=== PATIENT | male | born 1960 | race Caucasian/White ===

== ENCOUNTER → 2023-02-22 08:55 | Outpatient (CLI) | payer MEDICARE, SELFPAY ==
[2023-02-24 19:37] LABS: Fecal Immunochemical Test Positive (Negative)
== END ==
PROVIDERS: PCP Family Medicine; Visit Provider Physician Assistant
DX: Z12.11 Encounter for screening for malignant neoplasm of colon (principal)
CPT/HCPCS: 82274

== ENCOUNTER → 2023-03-10 10:51 | Outpatient (CLI) | payer MEDICARE, SELFPAY ==
[2023-03-10 19:46] LABS: Alanine Aminotransferase 48 IU/L (<50); Albumin 4.1 g/dL (3.5-5.0); Albumin Globulin Ratio 1.3 (1.0-2.8); Alkaline Phosphatase 62 U/L (38-126); Aspartate Aminotransferase 43 IU/L (17-59); BUN Creatinine Ratio 12.8 (6-22); Bilirubin Total 0.5 mg/dL (0.2-1.3); Blood Urea Nitrogen 11 mg/dL (9-20); Calcium 8.9 mg/dL (8.4-10.2); Carbon Dioxide 27 mmol/L (22-32); Chloride 102 mmol/L (98-107); Cholesterol 190 mg/dL (140-199); Estimated Glomerular Filt Rate > 60 mL/min (>60); Globulin 3.1 g/dL (1.7-4.1); Glucose 105 mg/dL (80-110); HDL Cholesterol 55 mg/dL (40-60); HEMOLYSIS 22 (0-50); LDL Cholesterol Calculated 114 mg/dL (<100); Potassium 4.5 mmol/L (3.4-5.1); Sodium 135 mmol/L (137-145); Total Protein 7.2 g/dL (6.3-8.2); Triglycerides 105 mg/dL (35-150)
[2023-03-10 19:50] LABS: Hemoglobin A1C% w Est Avg Glu 5.4 % (4.0-6.0)
[2023-03-10 19:57] LABS: Add Manual Diff / Slide Review NO; Basophils Absolute Auto 0 /uL (0-100); Basophils Percent Auto 0.6 % (0-2); Eosinophils Absolute Auto 200 /uL (0-450); Eosinophils Percent Auto 1.9 % (2-4); Hematocrit 41.9 % (41-53); Hemoglobin 14.4 g/dL (13.5-17.5); Lymphocytes Absolute Auto 1200 /uL (1100-4500); Lymphocytes Percent Auto 14.2 % (25-40); Mean Corpuscular HGB Conc 34.4 % (30-36); Mean Corpuscular Hemoglobin 33.3 PG (26-34); Mean Corpuscular Volume 96.8 fL (80-100); Monocytes Absolute Auto 600 /uL (0-900); Monocytes Percent Auto 7.4 % (3-14); Neutrophils Absolute Auto 6500 /uL (1500-7000); Neutrophils Percent Auto 75.9 % (50-75); Platelet Count 296 X10^3/uL (150-400); Red Blood Cell Count 4.33 X10^6/uL (4.5-5.9); Red Cell Distribution Width 13.3 % (11.6-14.8); White Blood Cell Count 8.6 X10^3/uL (4.5-11.0)
[2023-03-10 20:16] LABS: Prostate Specific Antigen Scrn 0.342 ng/mL (0.1-4.0)
[2023-03-10 20:18] LABS: TSH w/ Reflex to FT4 3.88 uIU/mL (0.47-4.68)
[2023-03-11 18:30] LABS: Hep C Virus Ab w/Reflex Quant REACTIVE s/c (NEGATIVE)
[2023-03-15 18:06] LABS: HCV Genotype 1a (.); HCV LOG 10 5.989 (.)
== END ==
PROVIDERS: PCP Family Medicine; Visit Provider Physician Assistant
DX: Z12.5 Encounter for screening for malignant neoplasm of prostate (principal); F32.A Depression, unspecified; Z13.6 Encounter for screening for cardiovascular disorders; Z79.899 Other long term (current) drug therapy; Z13.1 Encounter for screening for diabetes mellitus; Z11.59 Encounter for screening for other viral diseases
CPT/HCPCS: 80053; 80061; 83036; 84443; 85025; 86803; 87522; G0103

== ENCOUNTER → 2023-03-17 10:52 | Outpatient (CLI) | payer MEDICARE, SELFPAY ==
--- NOTE | 2023-03-17 10:53 | DI.CT.S_ITS ---
PROCEDURE: CT LUNG LOW DOSE SCREENING INDICATIONS: Smoker Screening for lung cancer TECHNIQUE: Noncontrast 2.0-2.5 mm thick sections acquired from the pulmonary apices to the posterior costophrenic angles. 7 mm thick axial MIP, and 5 mm coronal and sagittal reformats were then acquired. A low radiation dose technique was utilized. COMPARISON: None. FINDINGS: Image quality: Diagnostic, given the low radiation dose technique. Lungs and pleura: There is mild centrilobular emphysema with an apical predominance. Fibrotic changes are noted within the anterior aspect of the bilateral upper lungs. Mediastinum: Heart size is normal. No pericardial effusion. No mediastinal adenopathy by size criteria. Thoracic aorta and central pulmonary arteries are normal in size. Esophagus is normal in caliber. No hiatal hernia. Bones and chest wall: No suspicious bony lesions. There is a moderate T8 superior endplate compression deformity. Flowing syndesmophytes are present throughout the thoracic spine. No axillary or supraclavicular adenopathy by size criteria. Thyroid gland is unremarkable. Abdomen: Visualized upper abdomen solid organs and bowel loops appear normal in the absence of contrast. IMPRESSION: 1. No acute pulmonary radiopacities, nodules, or suspicious mass lesions. 2. Emphysema and fibrotic change. LUNG-RADS 1; annual CT surveillance recommended for high-risk patients. Dictated by: Maris Levy M.D. on 03/18/2023 at 9:17 Approved by: Maris Levy M.D. on 03/18/2023 at 9:22
== END ==
PROVIDERS: PCP Physician Assistant; Referring Provider Physician Assistant; Visit Provider Physician Assistant
DX: J43.2 Centrilobular emphysema (principal); Z12.2 Encounter for screening for malignant neoplasm of respiratory organs; F17.200 Nicotine dependence, unspecified, uncomplicated
CPT/HCPCS: 71250

== ENCOUNTER 2023-04-01 10:31 | Day surgery (SDC) | payer MEDICARE, OTHER, SELFPAY ==
--- NOTE | 2023-04-01 | PATH_ITS ---
[facility] Accession Number: [id number] No. of containers..03 Tissue . 01 Material submitted: . PART A: colon - ASCENDING POLYPS PART B: colon - TRANSVERSE POLYPS PART C: rectum - RECTAL POLYP . 01 Diagnosis: A. Ascending Colon, Polyps: Tubular adenomas. . B. Transverse Colon, Polyps: Tubular adenomas. . C. Rectum, Polyp: Tubular adenoma. [facility] 04/06/2023 1143 Local . 01 Electronically signed: . Kay Vanegas MD, Pathologist NPI- [id number] . 01 Gross description: . Part A: ASCENDING POLYPS: Received in formalin is multiple fragment(s) of booth, soft tissue measuring 1.5 x 0.5 x 0.2 cm in aggregate submitted entirely in 1 cassette(s) Part B: TRANSVERSE POLYPS: Received in formalin is multiple fragment(s) of booth, soft tissue measuring 1.2 x 0.5 x 0.2 cm in aggregate submitted entirely in 1 cassette(s) Part C: RECTAL POLYP: Received in formalin is 1 fragment(s) of booth, soft tissue measuring 1.4 x 0.8 x 0.6 cm which is bisected and submitted entirely in 1 cassette(s) /AAY 04/03/2023 2227 Local . 01 Pathologist provided ICD-10: D12.2, D12.3, D12.8 . 01 CPT . 315115, 152949, 954093 Specimen Comment: A courtesy copy of this report has been sent to [phone] Performed at: 01 [facility] [address] [place] [address] [address] [facility], [place], [place] [id number] MD Marco Biggs MD Phone: [phone]
[2023-04-01 12:03] VITALS: BMI 34.9
[2023-04-01 12:15] VITALS: BP 153/86; PULSE 87; RESP 18; TEMP 35.9; O2SAT 96
[2023-04-01] MEDS: LACTATED RINGERS 1,000 ML 42 ML IV (12:22)
--- NOTE | 2023-04-01 12:50 | PM.HP.1 ---
History of Present Illness History of Present Illness Date Patient Seen: 04/01/23 Time Patient Seen: 12:50 Chief complaint: SDC Narrative: Amado is a 63 year old man in for his first screening colonoscopy. He has no family history of colon cancer. He does smoke, mostly on weekends and was recently diagnosed with emphysema after a CT chest. He has occasional blood on toilet paper when he wipes. PFS Social History household members: none Smoking Status: Current some day smoker alcohol intake: current Meds Home Medications and Allergies Allergies Allergy/AdvReac Type Severity Reaction Status Date / Time No Known Drug Allergies Allergy Verified 03/31/23 07:54 Exam Vital Signs (past 8 hours): - 04/01/23 12:15 Temperature 96.7 F L Pulse Rate 87 Respiratory Rate 18 Blood Pressure 153/86 H Pulse Oximetry 96 Oxygen Delivery Method Room Air Oxygen Delivery Method Room Air Const General: No acute distress Assessment & Plan Assessment and plan (1) Colon cancer screening: Status: Acute Plan We reviewed the risks and benefits of colonoscopy for colon cancer screening and he would like to proceed.
--- NOTE | 2023-04-01 14:04 | PM.OP.COLON ---
Operative Date/Time/Diagnoses Date of procedure: 04/01/23 Time of procedure: 14:04 Pre-op diagnosis: Positive fit test Post-op diagnosis: same Procedure & Clinicians Study performed: Colonoscopy Same procedure as scheduled: Yes Surgeon: Weston Matute Procedure Notes Procedure in detail: Surgeon: Weston Matute MD Anesthesia: Saba Saavedra CRNA Procedure: The patient was brought to the endoscopy suite, placed in left lateral decubitus position. The patient was connected to monitoring devices. A time-out was performed. Sedation was administered. Once the patient was adequately sedated, a digital rectal exam was performed and was normal. The scope was then inserted and advanced to the cecum where the appendiceal orifice was identified and photographed. The scope was then slowly withdrawn over greater than 6 minutes. The mucosa was thoroughly inspected. There were 3 polyps in the ascending colon, each about 6 mm, each removed with a cold snare and sent together. There were 2 polyps in the transverse colon, each about 5 mm, each removed with cold snare and sent together. There was a rather large polyp on a stalk in the proximal rectum near the rectosigmoid junction. It was just over 1 cm and was resected with a cold snare. There was good hemostasis. The scope was retroflexed in the rectum. No other abnormalities were seen. The scope was straightened and removed. The patient was awakened and brought to recovery. Scope withdrawal time: 22 minutes Sedation time: 29 minutes EBL: 5 mL Findings: A 1.2 cm polyp in the upper rectum and 5 smaller polyps between the ascending and transverse colons Post-procedure Disposition: PACU
[2023-04-01 14:10] VITALS: BP 168/91; PULSE 85; RESP 16; TEMP 36.7; O2SAT 97
[2023-04-01 14:15] VITALS: BP 144/100; PULSE 74; RESP 15; O2SAT 97
[2023-04-01 14:20] VITALS: BP 159/81; PULSE 74; RESP 13; O2SAT 98
[2023-04-01 14:30] VITALS: BP 146/91; PULSE 63; RESP 12; O2SAT 98
[2023-04-01 14:45] VITALS: BP 150/87; PULSE 75; RESP 19; TEMP 36.6; O2SAT 97
== END 2023-04-01 15:00 | disposition home or self-care (01) ==
PROVIDERS: PCP Physician Assistant; Referring Provider Surgery; Visit Provider Surgery
PROC: 0DJD8ZZ Inspection of Lower Intestinal Tract, Via Natural or Artificial Opening Endoscopic (ICD-10-PCS; CPT 45378; principal; 2023-04-01 12:45)
DX: Z12.11 Encounter for screening for malignant neoplasm of colon (principal); R19.5 Other fecal abnormalities; D12.2 Benign neoplasm of ascending colon; D12.3 Benign neoplasm of transverse colon; D12.8 Benign neoplasm of rectum
CPT/HCPCS: 45385

== ENCOUNTER → 2023-07-27 13:54 | Outpatient (CLI) | payer MEDICARE, SELFPAY ==
[2023-07-27 20:09] LABS: Hemoglobin A1C% w Est Avg Glu 5.7 % (4.0-6.0)
[2023-07-27 20:13] LABS: Free T4, Direct Thyroxine 0.86 ng/dL (0.78-2.19)
[2023-07-27 20:17] LABS: Alanine Aminotransferase 59 IU/L (<50); Albumin 4.3 g/dL (3.5-5.0); Albumin Globulin Ratio 1.3 (1.0-2.8); Alkaline Phosphatase 48 U/L (38-126); Aspartate Aminotransferase 45 IU/L (17-59); Bilirubin Total 0.6 mg/dL (0.2-1.3); Bilirubin Unconjugated 0.3 mg/dL (0.0-1.1); Globulin 3.3 g/dL (1.7-4.1); HEMOLYSIS < 15 (0-50); Total Protein 7.6 g/dL (6.3-8.2)
[2023-07-27 20:27] LABS: Thyroid Stimulating Hormone 3.17 uIU/mL (0.47-4.68)
== END ==
PROVIDERS: PCP Physician Assistant; Visit Provider Internal Medicine Cardiovascular Disease
DX: R73.9 Hyperglycemia, unspecified (principal); R00.1 Bradycardia, unspecified
CPT/HCPCS: 80076; 83036; 84439; 84443

== ENCOUNTER → 2023-08-26 08:30 | Outpatient (CLI) | payer MEDICARE, SELFPAY ==
[2023-08-26 20:16] LABS: Alanine Aminotransferase 24 IU/L (<50); Albumin 4.2 g/dL (3.5-5.0); Albumin Globulin Ratio 1.4 (1.0-2.8); Alkaline Phosphatase 53 U/L (38-126); Aspartate Aminotransferase 30 IU/L (17-59); Bilirubin Total 0.5 mg/dL (0.2-1.3); Bilirubin Unconjugated 0.3 mg/dL (0.0-1.1); Globulin 3.1 g/dL (1.7-4.1); HEMOLYSIS < 15 (0-50); Total Protein 7.3 g/dL (6.3-8.2)
== END ==
PROVIDERS: PCP Physician Assistant; Visit Provider Internal Medicine Infectious Disease
DX: B19.20 Unspecified viral hepatitis C without hepatic coma (principal)
CPT/HCPCS: 80076

== ENCOUNTER → 2023-09-13 14:15 | Outpatient (CLI) | payer MEDICARE, SELFPAY ==
--- NOTE | 2023-09-13 14:16 | DI.ECHO.S_ITS ---
[facility]---------+ [facility] +---------+ : : [address] : : : : [id number] : : : : Phone: [phone]+ Echocardiogram Report + + :Name: CAIN ZEPEDA Study Date: 09/13/2023 Height: 68 in : :[facility] ReadingLocation: Weight: 235 lb : : Gender: Male BSA: 2.2 m2 : :: 1960 Age: 63 yrs BP: 154/87 mmHg: :Reason For Study: BRADYCARDIA : :Ordering Physician: SHANNEN, : :RENETTA Quintanilla Performed By: Kathya Alberts : :Referring: RENETTA WILLETT : + + Interpretation Summary Proximal septal thickening is noted and contributing to an elevated LVOT gradient. The ejection fraction is estimated to be 60-65%. Diastolic parameters suggest probable normal left ventricular diastolic function and normal filling pressures. The right ventricle is normal in size and function. No significant valvular abnormalities. Pulmonary artery pressures cannot be estimated because of the lack of a measurable TR jet velocity but the IVC suggests a CVP of around 3 mmHg. Procedure: A two-dimensional transthoracic echocardiogram with color flow and Doppler was performed. The study quality was technically adequate. There is no prior echocardiogram noted for this patient. The patient was in sinus rhythm with heart rates between 51-76 bpm during the exam. Left Ventricle: The left ventricle is normal in size and wall thickness. Proximal septal thickening is noted. The LVOT velocity is 19 m/s. The ejection fraction is estimated to be 60-65%. Diastolic parameters suggest probable normal left ventricular diastolic function and normal filling pressures. Right Ventricle: The right ventricle is normal in size and function. Atria: The left atrial size is normal. Right atrial size is normal. There is no Doppler evidence for an interatrial shunt. Mitral Valve: The mitral valve leaflets appear mildly thickened, but open well. There is no mitral regurgitation noted. Aortic Valve: The aortic valve is mildly calcified. The aortic valve is trileaflet. The peak aortic velocity is 1.9 m/sec. The aortic valve mean gradient is 8 mmHg. There is no hemodynamically significant valvular aortic stenosis. No aortic regurgitation is present. Tricuspid Valve: The tricuspid valve is normal in structure and function. There is trace tricuspid regurgitation. Pulmonary artery pressures cannot be estimated because of the lack of a measurable TR jet velocity but the IVC suggests a CVP of around 3 mmHg. Pulmonic Valve: The pulmonic valve is not well seen, but is grossly normal. There is trace pulmonic regurgitation. Great Vessels: The aortic root is normal size. The ascending aorta is at the upper limits of normal in size. The IVC is of normal diameter and collapses greater than 50% with a sniff. This suggests a low right atrial pressure of 3 mm Hg. Pericardium/ Pleura There is no pericardial effusion. There is no pleural effusion. MMode/2D Measurements & Calculations LVIDd: 6.0 cm LVOT diam: 2.3 cm LVIDs: 4.1 cm Ao root diam: 3.7 cm FS: 32.2 % asc Aorta Diam: 3.9 cm IVSd: 0.96 cm Ao Arch Diam (Prox Trans): 3.0 cm LVPWd: 1.1 cm LV dennis. diameter/BSA (cm/m^2): 2.8 LV sys. diameter/BSA (cm/m^2): 1.9 LA A2 area: 17.2 cm2 RA long axis: 5.6 cm LA A4 area: 21.3 cm2 RA area: 19.5 cm2 LA length (vol): 5.6 cm RA vol: 57.9 ml LA vol: 55.4 ml RA : 26.4 ml/m2 LA vol index: 25.3 ml/m2 IVC diam: 1.3 cm RVD1 (basal): 4.4 cm RVD2 (mid): 3.4 cm TAPSE: 2.4 cm Doppler Measurements & Calculations Ao V2 max: 193.8 cm/sec LVOT Max Sim: 157.6 cm/sec Ao V2 mean: 128.2 cm/sec LV V1 max P.2 mmHg Ao max P.1 mmHg LV V1 VTI: 32.9 cm Ao mean P.9 mmHg WILLIAM(I,D): 3.7 cm2 Ao V2 VTI: 38.3 cm WILLIAM(V,D): 3.5 cm2 sev ratio: 0.86 WILLIAM indexed to BSA (cm^2/m^2): 1.7 MV E max sim: 54.2 cm/sec TR max sim: 226.2 cm/sec MV A max sim: 48.1 cm/sec TR max P.5 mmHg MV E/A: 1.1 PA V2 max: 97.6 cm/sec Med Peak E' Sim: 8.5 cm/sec PA V2 mean: 69.6 cm/sec E/E' med: 6.3 PA mean P.2 mmHg Lat Peak E' Sim: 11.5 cm/sec PA pr(Accel): 36.2 mmHg E/E' lat: 4.7 E/e' average: 5.5 MV dec time: 0.21 sec SV(LVOT): 140.7 ml Reading Physician:05:27 PM
--- NOTE | 2023-09-14 09:14 | DI.NM.S_ITS ---
DATE OF SERVICE: 09/13/2023 PROCEDURE: Exercise treadmill stress test without imaging. ORDERING PROVIDER: Renetta Willett M.D. INDICATIONS: The patient is a 63-year-old hypertensive male with palpitations and bradycardia. FINDINGS: 1. The patient was able to exercise for 4 minutes, 37 seconds on a standard [place] protocol suggesting severely reduced exercise capacity with an LOVE of +35%, achieving 5.6 METS. 2. He had a normal heart rate and blood pressure response to exercise with a resting heart rate of 73 BPM increasing to a maximum of 149 BPM (96% of his predicted maximum). 3. He had no chest discomfort or other anginal symptoms. 4. His resting ECG showed sinus rhythm at [address] segments. There were no significant ST-segment shifts or arrhythmias with stress. IMPRESSION: 1. Normal exercise treadmill stress test for ischemia. 2. Severely reduced exercise capacity without angina or arrhythmias. He had a normal chronotropic heart rate response to exercise. Amado Rodriguez - KATI/evert/JACKIE doc#: [id number]/job#: [id number] dd: 09/13/2023 17:03:00 dt: 09/13/2023 20:11:00 DICTATING MD/COPIES TO: Amado Bergman MD; Renetta Willett M.D. COPIES MNE: CHAVA;
== END ==
PROVIDERS: PCP Physician Assistant; Referring Provider Internal Medicine Cardiovascular Disease; Visit Provider Internal Medicine Cardiovascular Disease
DX: R00.1 Bradycardia, unspecified (principal); R01.1 Cardiac murmur, unspecified; I10 Essential (primary) hypertension; R00.2 Palpitations
CPT/HCPCS: 93017; 93306

== ENCOUNTER → 2024-03-22 09:55 | Outpatient (CLI) | payer MEDICARE, SELFPAY ==
[2024-03-22 19:27] LABS: Add Manual Diff / Slide Review NO; Basophils Absolute Auto 0 /uL (0-100); Basophils Percent Auto 0.7 % (0-2); Eosinophils Absolute Auto 100 /uL (0-450); Eosinophils Percent Auto 2.1 % (2-4); Hematocrit 42.9 % (41-53); Hemoglobin 14.8 g/dL (13.5-17.5); Lymphocytes Absolute Auto 1400 /uL (1100-4500); Lymphocytes Percent Auto 21.3 % (25-40); Mean Corpuscular HGB Conc 34.6 % (30-36); Mean Corpuscular Hemoglobin 33.5 PG (26-34); Monocytes Absolute Auto 500 /uL (0-900); Monocytes Percent Auto 7.8 % (3-14); Neutrophils Absolute Auto 4600 /uL (1500-7000); Neutrophils Percent Auto 68.1 % (50-75); Platelet Count 296 X10^3/uL (150-400); Red Blood Cell Count 4.42 X10^6/uL (4.5-5.9); Red Cell Distribution Width 13.7 % (11.6-14.8); White Blood Cell Count 6.7 X10^3/uL (4.5-11.0)
[2024-03-22 20:34] LABS: TSH w/ Reflex to FT4 1.13 uIU/mL (0.47-4.68)
[2024-03-22 20:38] LABS: Alanine Aminotransferase 24 IU/L (<50); Albumin 4.4 g/dL (3.5-5.0); Albumin Globulin Ratio 1.4 (1.0-2.8); Alkaline Phosphatase 55 U/L (38-126); Aspartate Aminotransferase 60 IU/L (17-59); BUN Creatinine Ratio 12.1 (6-22); Bilirubin Total 0.5 mg/dL (0.2-1.3); Blood Urea Nitrogen 11 mg/dL (9-20); Carbon Dioxide 28 mmol/L (22-32); Chloride 104 mmol/L (98-107); Cholesterol 209 mg/dL (140-199); Estimated Glomerular Filt Rate > 60 mL/min (>60); Globulin 3.2 g/dL (1.7-4.1); Glucose 116 mg/dL (80-110); HDL Cholesterol 49 mg/dL (40-60); HEMOLYSIS < 15 (0-50); LDL Cholesterol Calculated 133 mg/dL (<100); Potassium 4.6 mmol/L (3.4-5.1); Sodium 137 mmol/L (137-145); Total Protein 7.6 g/dL (6.3-8.2); Triglycerides 137 mg/dL (35-150)
[2024-03-22 22:08] LABS: Prostate Specific Antigen Scrn 0.402 ng/mL (0.1-4.0)
[2024-03-23 21:48] LABS: HIV 1 & 2 Ab/Ag 4th Gen Combo NEGATIVE (NEGATIVE); Hep C Virus Ab w/Reflex Quant REACTIVE s/c (NEGATIVE)
[2024-03-24 10:40] LABS: Fecal Immunochemical Test Negative (Negative)
== END ==
PROVIDERS: PCP Physician Assistant; Visit Provider Physician Assistant
DX: Z12.5 Encounter for screening for malignant neoplasm of prostate (principal); F32.A Depression, unspecified; L65.9 Nonscarring hair loss, unspecified; E78.00 Pure hypercholesterolemia, unspecified; Z79.899 Other long term (current) drug therapy; Z12.11 Encounter for screening for malignant neoplasm of colon; R76.8 Other specified abnormal immunological findings in serum; Z11.4 Encounter for screening for human immunodeficiency virus [HIV]
CPT/HCPCS: 80053; 80061; 82274; 84443; 85025; 86803; 87389; 87522; G0103

== ENCOUNTER → 2024-07-26 10:35 | Outpatient (CLI) | payer MEDICARE, SELFPAY ==
[2024-07-26 19:27] LABS: Add Manual Diff / Slide Review NO; Basophils Absolute Auto 0 /uL (0-100); Basophils Percent Auto 0.7 % (0-2); Eosinophils Absolute Auto 200 /uL (0-450); Eosinophils Percent Auto 3.3 % (2-4); Hematocrit 42.7 % (41-53); Hemoglobin 14.6 g/dL (13.5-17.5); Lymphocytes Absolute Auto 1700 /uL (1100-4500); Lymphocytes Percent Auto 29.7 % (25-40); Mean Corpuscular HGB Conc 34.3 % (30-36); Mean Corpuscular Hemoglobin 33.3 PG (26-34); Mean Corpuscular Volume 97.1 fL (80-100); Monocytes Absolute Auto 500 /uL (0-900); Monocytes Percent Auto 8.9 % (3-14); Neutrophils Absolute Auto 3300 /uL (1500-7000); Neutrophils Percent Auto 57.4 % (50-75); Platelet Count 271 X10^3/uL (150-400); Red Cell Distribution Width 13.3 % (11.6-14.8); White Blood Cell Count 5.7 X10^3/uL (4.5-11.0)
[2024-07-26 19:32] LABS: Alanine Aminotransferase 27 IU/L (<50); Albumin 4.5 g/dL (3.5-5.0); Albumin Globulin Ratio 1.5 (1.0-2.8); Alkaline Phosphatase 52 U/L (38-126); Aspartate Aminotransferase 34 IU/L (17-59); BUN Creatinine Ratio 13.5 (6-22); Bilirubin Total 0.5 mg/dL (0.2-1.3); Blood Urea Nitrogen 13 mg/dL (9-20); Calcium 9.1 mg/dL (8.4-10.2); Carbon Dioxide 29 mmol/L (22-32); Chloride 104 mmol/L (98-107); Cholesterol 218 mg/dL (140-199); Estimated Glomerular Filt Rate > 60 mL/min (>60); Globulin 3.1 g/dL (1.7-4.1); Glucose 111 mg/dL (80-110); HDL Cholesterol 51 mg/dL (40-60); HEMOLYSIS < 15 (0-50); LDL Cholesterol Calculated 127 mg/dL (<100); Magnesium 1.9 mg/dL (1.6-2.3); Potassium 5.1 mmol/L (3.4-5.1); Sodium 134 mmol/L (137-145); Total Protein 7.6 g/dL (6.3-8.2); Triglycerides 200 mg/dL (35-150)
[2024-07-26 19:34] LABS: Hemoglobin A1C% w Est Avg Glu 5.4 % (4.0-6.0)
[2024-07-26 20:00] LABS: TSH w/ Reflex to FT4 0.91 uIU/mL (0.47-4.68)
== END ==
PROVIDERS: PCP Physician Assistant; Visit Provider Internal Medicine Cardiovascular Disease
DX: Z13.220 Encounter for screening for lipoid disorders (principal); R00.1 Bradycardia, unspecified; R73.9 Hyperglycemia, unspecified; R03.0 Elevated blood-pressure reading, without diagnosis of hypertension
CPT/HCPCS: 80053; 80061; 83036; 83735; 84443; 85025

== ENCOUNTER → 2024-08-28 14:27 | Outpatient (CLI) | payer MEDICARE, SELFPAY ==
[2024-08-28 19:26] LABS: BUN Creatinine Ratio 16.2 (6-22); Blood Urea Nitrogen 16 mg/dL (9-20); Calcium 9.1 mg/dL (8.4-10.2); Carbon Dioxide 30 mmol/L (22-32); Chloride 102 mmol/L (98-107); Estimated Glomerular Filt Rate > 60 mL/min (>60); Glucose 101 mg/dL (80-110); HEMOLYSIS 18 (0-50); Potassium 4.4 mmol/L (3.4-5.1); Sodium 137 mmol/L (137-145)
== END ==
PROVIDERS: PCP Physician Assistant; Visit Provider Internal Medicine Cardiovascular Disease
DX: I10 Essential (primary) hypertension (principal)
CPT/HCPCS: 80048

== ENCOUNTER → 2024-11-28 13:49 | Outpatient (CLI) | payer MEDICARE, SELFPAY ==
[2024-11-28 19:11] LABS: BUN Creatinine Ratio 15.6 (6-22); Blood Urea Nitrogen 15 mg/dL (9-20); Carbon Dioxide 27 mmol/L (22-32); Chloride 100 mmol/L (98-107); Estimated Glomerular Filt Rate > 60 mL/min (>60); Glucose 90 mg/dL (70-99); HEMOLYSIS < 15 (0-50); Potassium 3.9 mmol/L (3.4-5.1); Sodium 136 mmol/L (137-145)
== END ==
PROVIDERS: PCP Physician Assistant; Visit Provider Internal Medicine Cardiovascular Disease
DX: I10 Essential (primary) hypertension (principal)
CPT/HCPCS: 80048